=== PATIENT | female | born 1985 | race African-American/Black ===

== ENCOUNTER 2017-02-28 07:06 | Emergency (ER) | payer OTHER ==
[~2017-02-28] VITALS: Ht 170.2 cm; Wt 154.2 kg
[~2017-02-28 07:06] MED LIST: AMOXICILLIN500 MG OR; AZOPT1 % OP; BACTRIM DS1 TAB PO; CLARITIN10 M2 PO; CLARITIN5 MG OR; FISH OIL1000 MG PO; IBUPROFEN600 MG PO; LORTAB 7.57.5 MG PO; LORTAB5 PO; NAPROSYN500 MG OR; NAPROSYN500 MG PO; NASONEX50 MCG/AC; PRENATAL1 TA1 PO; SINGULAIR5 MG OR; TRAVATAN0.004 % OP; ZITHROMAX250 MG PO
[2017-02-28] MEDS ORDERED: ZOFRAN ODT4 MG PO (07:38)
[2017-02-28] MEDS ORDERED: IMODIUM2 MG PO (07:38)
[2017-02-28 07:50] VITALS: BP 127/79
== END 2017-02-28 07:50 | disposition home or self-care (01) | DRG 392 ==
LOC: ED 07:06
DX: K52.9 Noninfective gastroenteritis and colitis, unspecified (principal)

== ENCOUNTER 2017-10-24 17:24 | Emergency (ER) | payer MEDICAID ==
[~2017-10-24] VITALS: Ht 170.2 cm; Wt 150.0 kg
[~2017-10-24 17:24] MED LIST changes: +IMODIUM2 MG PO; +ZOFRAN ODT4 MG PO
[2017-10-24] MEDS ORDERED: TRAVATAN0.0041 OU (17:35)
[2017-10-24] MEDS ORDERED: MOTRIN800 MG PO (17:41)
[2017-10-24] MEDS ORDERED: PENICILLN VK500 MG PO (17:41)
[2017-10-24] MEDS ORDERED: TRAMADOL HYDROC50 MG PO (17:41)
[2017-10-24 17:48] VITALS: BP 160/88
== END 2017-10-24 17:55 | disposition home or self-care (01) | DRG 552 ==
LOC: ED 17:24
DX: M54.5 Low back pain (principal); K08.89 Other specified disorders of teeth and supporting structures

== ENCOUNTER 2018-06-17 17:35 | Emergency (ER) | payer MEDICAID ==
[~2018-06-17] VITALS: Ht 170.2 cm; Wt 163.6 kg
[~2018-06-17 17:35] MED LIST changes: -AZOPT1 % OP; +AZOPT1 % OU; +MOTRIN800 MG PO; +PENICILLN VK500 MG PO; +TRAMADOL HYDROC50 MG PO; +TRAVATAN0.0041 OU
[2018-06-17] MEDS ORDERED: LISINOPRIL10 MG PO (17:49)
[2018-06-17] MEDS ORDERED: LISINOPRIL20 M1 PO (17:58)
[2018-06-17 18:00] VITALS: BP 130/79
== END 2018-06-17 18:00 | disposition home or self-care (01) ==
LOC: ED 17:35
DX: T16.1XXA Foreign body in right ear, initial encounter (principal); X58.XXXA Exposure to other specified factors, initial encounter

== ENCOUNTER 2019-06-22 07:31 | Emergency (ER) | payer OTHER ==
[~2019-06-22] VITALS: Ht 170.2 cm; Wt 175.0 kg
[~2019-06-22 07:31] MED LIST changes: +LISINOPRIL10 MG PO; +LISINOPRIL20 M1 PO
[2019-06-22] MEDS ORDERED: ZITHROMAX250 MG PO (08:42)
[2019-06-22] MEDS ORDERED: TESSALON PERLE100 MG PO (08:42)
[2019-06-22 08:45] VITALS: BP 153/89
== END 2019-06-22 08:50 | disposition home or self-care (01) ==
LOC: ED 07:31
DX: J40 Bronchitis, not specified as acute or chronic (principal); I10 Essential (primary) hypertension

== ENCOUNTER 2019-09-10 08:36 | Emergency (ER) | payer MEDICAID ==
[~2019-09-10 08:36] MED LIST changes: +TESSALON PERLE100 MG PO
[2019-09-10] MEDS ORDERED: TAM75CAP PO (09:20)
[2019-09-10 09:40] VITALS: BP 147/89
== END 2019-09-10 09:49 | disposition home or self-care (01) ==
LOC: ED 08:36
DX: J11.1 Influenza due to unidentified influenza virus with other respiratory manifestations (principal); I10 Essential (primary) hypertension

== ENCOUNTER 2019-10-17 | Emergency (ER) | payer SELFPAY ==
[~2019-10-17] MED LIST changes: +TAM75CAP PO
[2019-10-17 08:10] LABS: HEMATOCRIT 35.6 % (37.0-47.0); HEMOGLOBIN 11.3 g/dl (12.0-16.0); IMMATURE GRANULOCYTES 0.3 % (0.0-5.0); MEAN CORPUSCULAR HGB CONC 31.7 g/L CALC (32.0-36.0); NEUT# 4.58 thou/uL (2.00-7.15); RED BLOOD COUNT 4.35 mill/uL (4.20-5.60); RED CELL DISTRI WIDTH 16.4 % (11.5-15.5)
[2019-10-17 08:12] LABS: MEAN CELL VOLUME 81.8 fL CALC (80.0-100.0)
== END 2019-10-17 09:07 | disposition home or self-care (01) | DRG 866 ==
PROVIDERS: Family Medicine
DX: B34.9 Viral infection, unspecified (principal); I10 Essential (primary) hypertension

== ENCOUNTER 2019-11-14 | Emergency (ER) | payer MEDICAID ==
[2019-11-14] MEDS ORDERED: VOLTAREN - GENE75 MG PO (08:23)
== END 2019-11-14 08:40 | disposition home or self-care (01) ==
DX: S86.911A Strain of unspecified muscle(s) and tendon(s) at lower leg level, right leg, initial encounter (principal); I10 Essential (primary) hypertension; X58.XXXA Exposure to other specified factors, initial encounter

== ENCOUNTER 2020-02-13 12:14 | Emergency (ER) | payer OTHER, MEDICAID ==
[~2020-02-13 12:14] MED LIST changes: +VOLTAREN - GENE75 MG PO
[2020-02-13 12:21] VITALS: BP 178/77
[2020-02-13] MEDS ORDERED: HYDROCO/APAP1 TA9 PO (13:12)
== END 2020-02-13 13:35 | disposition home or self-care (01) | DRG 563 ==
LOC: ED 12:14
DX: S62.661A Nondisplaced fracture of distal phalanx of left index finger, initial encounter for closed fracture (principal); S60.122A Contusion of left index finger with damage to nail, initial encounter; I10 Essential (primary) hypertension; W23.0XXA Caught, crushed, jammed, or pinched between moving objects, initial encounter; Y93.89 Activity, other specified; Y92.89 Other specified places as the place of occurrence of the external cause; Y99.0 Civilian activity done for income or pay

== ENCOUNTER 2020-07-12 00:26 | Emergency (ER) | payer MEDICAID ==
[~2020-07-12] VITALS: Ht 165.1 cm; Wt 161.0 kg
[~2020-07-12 00:26] MED LIST changes: +HYDROCO/APAP1 TA9 PO
[2020-07-12] MEDS ORDERED: TRAVATAN0.0041 OP (00:44)
[2020-07-12 00:59] LABS: HEMATOCRIT 34.1 % (37.0-47.0); HEMOGLOBIN 10.8 g/dl (12.0-16.0); IMMATURE GRANULOCYTES 0.5 % (0.0-5.0); MEAN CELL VOLUME 83.6 fL CALC (80.0-100.0); MEAN CORPUSCULAR HGB 26.5 pG CALC (26.0-32.0); MEAN CORPUSCULAR HGB CONC 31.7 g/dL CAL (32.0-36.0); NEUT# 9.56 thou/uL (2.00-7.15); RED BLOOD COUNT 4.08 mill/uL (4.20-5.60); RED CELL DISTRI WIDTH 16.3 % (11.5-15.5)
[2020-07-12 01:03] LABS: URINE BILIRUBIN - DIPSTICK NEGATIVE (NEGATIVE); URINE BLOOD DIPSTICK NEGATIVE (NEGATIVE); URINE COLOR YELLOW; URINE GLUCOSE - DIPSTICK NEGATIVE (NEGATIVE); URINE KETONE NEGATIVE (NEGATIVE); URINE LEUK ESTERASE NEGATIVE (NEGATIVE); URINE NITRITE - DIPSTICK NEGATIVE (Negative); URINE PH 8.5 (4.5-8.0); URINE PROTEIN - DIPSTICK NEGATIVE (NEG-TRACE); URINE SPECIFIC GRAVITY 1.015
[2020-07-12 01:19] LABS: ALBUMIN 4.1 g/dL (3.2-5.0); ALKALINE PHOSPHATASE 82 u/l (38-126); ANION GAP 13 (6-22 (CALC)); BILIRUBIN, TOTAL 0.3 mg/dL (0.0-1.4); BUN 5 mg/dL (7-17); BUN/CREATININE RATIO 7 (12-20 (CALC)); CARBON DIOXIDE 22 mmol/l (22-30); CHLORIDE 106 mmol/l (95-108); CREATININE 0.8 mg/dL (0.5-1.0); GFR > 60 ML/MIN (>=60 (CALC)); GFR FOR AFR.AMER. > 60 ML/MIN (>=60 (CALC)); POTASSIUM 3.9 mmol/l (3.5-5.1); SGOT/AST 26 u/l (14-36); TOTAL PROTEIN 7.9 g/dL (6.3-8.2)
[2020-07-12 01:24] LABS: SODIUM 137 mmol/l (137-146)
[2020-07-12 02:11] VITALS: BP 112/58
== END 2020-07-12 02:12 | disposition home or self-care (01) ==
LOC: ED 00:26
PROVIDERS: Emergency Medicine
DX: R51.9 Headache, unspecified (principal); I10 Essential (primary) hypertension

== ENCOUNTER 2020-12-04 08:25 | Emergency (ER) | payer OTHER ==
[~2020-12-04] VITALS: Ht 165.1 cm; Wt 161.3 kg
[~2020-12-04 08:25] MED LIST changes: +TRAVATAN0.0041 OP
[2020-12-04] MEDS ORDERED: AMOXICILLIN500 M2 PO (09:27)
[2020-12-04 10:04] VITALS: BP 125/78
== END 2020-12-04 10:05 | disposition home or self-care (01) ==
LOC: ED 08:25
DX: J02.9 Acute pharyngitis, unspecified (principal); I10 Essential (primary) hypertension; Z20.822 Contact with and (suspected) exposure to COVID-19

== ENCOUNTER 2021-04-27 00:15 | Emergency (ER) | payer MEDICAID ==
[~2021-04-27] VITALS: Ht 165.1 cm; Wt 164.0 kg
[~2021-04-27 00:15] MED LIST changes: +AMOXICILLIN500 M2 PO
[2021-04-27 02:00] VITALS: BP 160/97
== END 2021-04-27 02:00 | disposition home or self-care (01) ==
LOC: ED 00:15
DX: B34.9 Viral infection, unspecified (principal); I10 Essential (primary) hypertension; H40.9 Unspecified glaucoma; Z20.822 Contact with and (suspected) exposure to COVID-19

== ENCOUNTER 2021-10-27 07:35 | Emergency (ER) | payer OTHER, MEDICAID ==
[~2021-10-27] VITALS: Ht 165.1 cm; Wt 163.0 kg
[2021-10-27] MEDS ORDERED: CLEOCIN300 MG PO (08:43)
[2021-10-27 08:51] VITALS: BP 164/109
== END 2021-10-27 09:00 | disposition home or self-care (01) | DRG 159 ==
LOC: ED 07:35
DX: K04.7 Periapical abscess without sinus (principal); I88.8 Other nonspecific lymphadenitis; I10 Essential (primary) hypertension

== ENCOUNTER 2022-07-05 18:50 | Emergency (ER) | payer OTHER, MEDICAID ==
[~2022-07-05] VITALS: Ht 165.1 cm; Wt 161.8 kg
[2022-07-05] VITALS (10 sets, daily range): BP systolic 145–187; BP diastolic 96–131
[~2022-07-05 18:50] MED LIST changes: +CLEOCIN300 MG PO
[2022-07-05] MEDS ORDERED: LOSARTAN POTASS50 MG PO (19:52)
[2022-07-06] MEDS ORDERED: VOLTAREN75 MG PO (00:02)
[2022-07-06 00:05] VITALS: BP 146/90
== END 2022-07-06 00:15 | disposition home or self-care (01) | DRG 552 ==
LOC: ED 18:50
DX: S16.1XXA Strain of muscle, fascia and tendon at neck level, initial encounter (principal); S29.012A Strain of muscle and tendon of back wall of thorax, initial encounter; Y93.61 Activity, american tackle football

== ENCOUNTER 2023-04-03 11:36 | Emergency (ER) | payer OTHER, MEDICAID ==
[~2023-04-03] VITALS: Ht 165.1 cm; Wt 162.0 kg
[~2023-04-03 11:36] MED LIST changes: +LOSARTAN POTASS50 MG PO; +VOLTAREN75 MG PO
[2023-04-03 11:43] VITALS: BP 173/107
[2023-04-03 11:45] VITALS: BP 172/104
[2023-04-03] MEDS ORDERED: CLINDAMYCIN300 M1 PO (12:01)
[2023-04-03 12:19] VITALS: BP 172/104
== END 2023-04-03 12:21 | disposition home or self-care (01) | DRG 159 ==
LOC: ED 11:36
DX: K03.81 Cracked tooth (principal); I10 Essential (primary) hypertension; E66.01 Morbid (severe) obesity due to excess calories

== ENCOUNTER 2024-11-09 07:26 | Emergency (ER) | payer OTHER ==
[~2024-11-09] VITALS: Ht 165.1 cm; Wt 161.5 kg
[~2024-11-09 07:26] MED LIST changes: +CLINDAMYCIN300 M1 PO
[2024-11-09] MEDS ORDERED: ZPAK PO (08:43)
[2024-11-09 08:46] VITALS: BP 151/95
== END 2024-11-09 08:50 | disposition home or self-care (01) | DRG 153 ==
LOC: ED 07:26
DX: J06.9 Acute upper respiratory infection, unspecified (principal); I10 Essential (primary) hypertension; Z20.822 Contact with and (suspected) exposure to COVID-19